=== PATIENT | female | born 1955 | race Caucasian/White ===

== ENCOUNTER 2021-11-15 17:02 | Observation (INO) ==
[2021-11-15] MEDS ORDERED: Morphine Sulfate 2 MG/ML SYRINGE IVP ONE ×2 (18:46→21:17)
[2021-11-15] MEDS ORDERED: ceFAZolin 2,000 MG in 0.9 % Sodium Chloride 100 ML IVPB ONE (18:46)
[2021-11-15] MEDS ORDERED: Ondansetron 4 MG/2 ML VIAL IVP ONE (18:46)
[2021-11-15] MEDS ORDERED: 0.9 % Sodium Chloride 1,000 ML IV ONE (18:46)
[2021-11-15 19:39] LABS: Basophils % 0.3 %; Eosinophils % 0.7 %; Hemoglobin 14.1 g/dL (11.5-15.4); Immature Granulocytes % 0.3 % (0-4); Lymphocytes # 0.8 K/mcL (0.6-4.6); Mean Corpuscular HGB Conc 33.6 g/dL (31.6-35.5); Mean Corpuscular Hemoglobin 31.6 pg (28.0-33.3); Mean Corpuscular Volume 94.2 fL (83.0-100.0); Mean Platelet Volume 11.3 fL (9.4-12.4); Monocytes # 0.5 K/mcL (0.0-1.3); Monocytes % 8.3 %; Neutrophils # 4.5 K/mcL (1.6-8.9); Platelet Count 150 K/mcL (140-400); Red Blood Count 4.46 M/mcL (3.82-4.97); Red Cell Distribution Width 12.9 % (11.5-14.5); Segmented Neutrophils % 77.4 %; White Blood Count 5.8 K/mcL (4.3-11.1)
[2021-11-15 20:55] LABS: BUN/Creatinine Ratio 16 (6-26); Blood Urea Nitrogen 16 mg/dL (8-23); Calcium 8.9 mg/dL (8.6-10.3); Carbon Dioxide 25 mEq/L (23-29); Chloride 107 mEq/L (98-107); Glucose 111 mg/dL (70-105); Osmolality,Calculated 290 (280-300); Potassium 3.9 mEq/L (3.5-5.1); Sodium 139 mEq/L (136-145); eGFR For African Americans > 60 (> 60); eGFR For Non-African Americans 55 (> 60)
[2021-11-15] MEDS ORDERED: Iopamidol - 370 500 ML MLS IVP ONE (21:16)
[2021-11-15] MEDS ORDERED: Naloxone 0.4 MG/ML INJ IVP PRN (21:48)
[2021-11-15] MEDS ORDERED: Melatonin 3 MG TABLET PO PRN (21:48)
[2021-11-15] MEDS ORDERED: Acetaminophen 325 MG TABLET PO PRN (21:48)
[2021-11-15] MEDS ORDERED: Ondansetron 4 MG/2 ML VIAL IVP PRN (21:48)
[2021-11-15] MEDS ORDERED: 0.9 % Sodium Chloride 1,000 ML IVC SCH (22:00)
[2021-11-16] MEDS: *HR* OxyCODONE Immed Rel 5 MG TABLET PO PRN ×3 (01:18→22:20)
[2021-11-16] MEDS: CeFAZolin 2,000 MG/120 ML BAG IVPB SCH ×3 (03:12→19:28)
[2021-11-16] MEDS: Metoprolol XL (24 HR) Succ 25 MG TAB.ER.24H PO SCH (07:58)
[2021-11-16] MEDS: Cholecalciferol (D-3) 1,000 UNIT (25MCG) TABLET PO SCH (08:07)
[2021-11-16] MEDS: Ascorbic Acid 500 MG TABLET PO SCH (08:07)
[2021-11-16] MEDS: Cyanocobalamin (B-12) 1,000 MCG TABLET PO SCH (08:07)
[2021-11-16] MEDS ORDERED: Famotidine 20 MG TABLET PO SCH (09:00)
[2021-11-16] MEDS ORDERED: *HR* Midazolam HCl 2 MG/2 ML VIAL ONE (11:46)
[2021-11-16] MEDS ORDERED: *HR* Propofol 200 MG/20 ML VIAL IVP ONE (11:46)
[2021-11-16] MEDS ORDERED: Ondansetron 4 MG/2 ML VIAL ONE (11:46)
[2021-11-16] MEDS ORDERED: Lidocaine -MPF 2% 5 ML VIAL ONE (11:46)
[2021-11-16] MEDS ORDERED: *HR* FentaNYL (PF) 100 MCG/2 ML VIAL ONE (11:46)
[2021-11-16] MEDS ORDERED: Famotidine 20 MG/2 ML VIAL IVP ONE (11:59)
[2021-11-16] MEDS ORDERED: Acetaminophen IV 1,000 MG/100 ML BAG IVPB ONE (11:59)
[2021-11-16] MEDS ORDERED: Lidocaine -MPF 4% 5 ML AMPUL ONE (12:13)
[2021-11-16] MEDS ORDERED: Ropivacaine/PF 0.5% 30 ML VIAL ONE (12:13)
[2021-11-16] MEDS ORDERED: EPHEDrine 50 MG/ML VIAL ONE (12:54)
[2021-11-16] MEDS ORDERED: Ondansetron 4 MG/2 ML VIAL IVP PRN (14:35)
[2021-11-16] MEDS ORDERED: Bacitracin OINT PKT TP ONE (14:35)
[2021-11-16] MEDS ORDERED: *HR* OxyCODONE Immed Rel 5 MG TABLET PO PRN (14:35)
[2021-11-16] MEDS: Aspirin Enteric Coated 81 MG Tablet PO SCH (16:25)
[2021-11-17] MEDS: CeFAZolin 2,000 MG/120 ML BAG IVPB SCH ×2 (02:45→08:18)
[2021-11-17 04:25] VITALS: PULSE 80
[2021-11-17 06:58] LABS: Basophils % 0.3 %; Hematocrit 39.3 % (35.3-44.9); Hemoglobin 12.9 g/dL (11.5-15.4); Immature Granulocytes % 0.3 % (0-4); Mean Corpuscular HGB Conc 32.8 g/dL (31.6-35.5)
[2021-11-17 07:00] LABS: Eosinophils % 0.3 %; Immature Platelets 5.9 % (1.1-6.1); Lymphocytes # 1.2 K/mcL (0.6-4.6); Mean Corpuscular Hemoglobin 31.4 pg (28.0-33.3); Mean Corpuscular Volume 95.6 fL (83.0-100.0); Mean Platelet Volume 11.3 fL (9.4-12.4); Monocytes # 0.9 K/mcL (0.0-1.3); Monocytes % 13.3 %; Platelet Count 130 K/mcL (140-400); Red Blood Count 4.11 M/mcL (3.82-4.97); Red Cell Distribution Width 13.2 % (11.5-14.5); Segmented Neutrophils % 68.8 %; White Blood Count 6.8 K/mcL (4.3-11.1)
[2021-11-17 07:02] LABS: Neutrophils # 4.7 K/mcL (1.6-8.9)
[2021-11-17 07:18] LABS: BUN/Creatinine Ratio 13 (6-26); Blood Urea Nitrogen 10 mg/dL (8-23); Calcium 8.2 mg/dL (8.6-10.3); Carbon Dioxide 24 mEq/L (23-29); Chloride 109 mEq/L (98-107); Glucose 104 mg/dL (70-105); Osmolality,Calculated 287 (280-300); Potassium 3.7 mEq/L (3.5-5.1); Sodium 139 mEq/L (136-145); eGFR For African Americans > 60 (> 60); eGFR For Non-African Americans > 60 (> 60)
[2021-11-17 07:32] VITALS: BP 123/75; TEMP 98.4; O2SAT 93
[2021-11-17] MEDS: Metoprolol XL (24 HR) Succ 25 MG TAB.ER.24H PO SCH (08:16)
[2021-11-17] MEDS: Ascorbic Acid 500 MG TABLET PO SCH (08:16)
[2021-11-17] MEDS: Aspirin Enteric Coated 81 MG Tablet PO SCH (08:16)
[2021-11-17] MEDS: Cholecalciferol (D-3) 1,000 UNIT (25MCG) TABLET PO SCH (08:17)
[2021-11-17] MEDS: Cyanocobalamin (B-12) 1,000 MCG TABLET PO SCH (08:17)
[2021-11-17] MEDS ORDERED: Famotidine 20 MG TABLET PO SCH (09:00)
== END 2021-11-17 12:38 | disposition home or self-care (01) ==
LOC: 4WAOSI 17:02 → EMEROOARM 17:02 → SUATTDRO 21:30 → 4WAOSI 22:00
PROVIDERS: ADMIT Internal Medicine; ATTEND Pharmacist